=== PATIENT | female | born 1935 | race Caucasian/White ===

== ENCOUNTER 2019-06-24 11:17 | Emergency (ER) | payer MEDICARE, BC ==
--- NOTE | 2019-06-24 13:11 | CT ---
Head CT Technique: Multiple axial sections through the brain were obtained. Intravenous contrast was not utilized. Comparison: No previous intracranial imaging. Findings: Cystic structure is noted within the left temporal region which is most likely congenital. Ventricles along with basal cisterns and sulci over the convexities are moderately prominent. Minimal diminished density is noted within the periventricular white matter. No other abnormal parenchymal densities are seen. No evidence of intracranial hemorrhage. No midline shift or mass effect is seen. Bone window settings were reviewed which show the visualized paranasal sinuses and mastoid sinuses to appear clear. No acute calvarial abnormality is seen. Impression: 1. 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 2. Mild senescent change as noted above. Nothing acute is appreciated on noncontrast head CT exam. Diagnostic code #2
--- NOTE | 2019-06-24 13:50 | EDM.PDOC ---
ED HPI GENERAL MEDICAL PROBLEM - General Chief Complaint: Syncope Stated Complaint: CHILLS,FAINTED YESTERDAY,SORE Time Seen by Provider: 06/24/19 11:39 Source of Information: Reports: Patient, RN Notes Reviewed - History of Present Illness INITIAL COMMENTS - FREE TEXT/NARRATIVE: 84-year-old lady suffered brief syncope around 2 AM which would be about 9 hours prior to arrival. She states she felt slightly nauseated, went to use the bathroom, was sitting on the toilet and next thing she knew she was on the floor. When she awakened she states she "felt okay, went back to bed, slept comfortably the rest of the night. This morning since awakening she has had no further unusual symptoms. She does not have history of hypertension diabetes or known heart disease. Generalized Pain Score (Numeric/FACES): 4 - Related Data Allergies Allergy/AdvReac Type Severity Reaction Status Date / Time Penicillins Allergy Rash Verified 06/24/19 11:32 Home Meds: Home Meds Multivitamin [Multiple Vitamins] 1 tab PO DAILY 06/24/19 [History] Nitrofurantoin Monohyd/M-Cryst [Macrobid 100 mg Capsule] 100 mg PO Q12HR #10 capsule 06/24/19 [Rx] Past Medical History HEENT History: Reports: Impaired Vision Other HEENT History: wears glasses [employer] History: Reports: - Past Surgical History HEENT Surgical History: Reports: Cataract Surgery GI Surgical History: Reports: Colonoscopy Female Surgical History: Reports: Hysterectomy Musculoskeletal Surgical History: Reports: Knee Replacement, Shoulder Replacement Social & Family History - Tobacco Use Smoking Status *Q: Never Smoker Second Hand Smoke Exposure: No - Caffeine Use Caffeine Use: Reports: Coffee - Recreational Drug Use Recreational Drug Use: No ED ROS GENERAL - Review of Systems Review Of Systems: See Below Constitutional: Denies: Fever, Chills, Diaphoresis HEENT: Reports: No Symptoms Respiratory: Denies: Shortness of Breath, Pleuritic Chest Pain Cardiovascular: Denies: Chest Pain GI/Abdominal: Denies: Abdominal Pain, Nausea, Vomiting Musculoskeletal: Denies: Neck Pain, Shoulder Pain, Arm Pain, Back Pain, Leg Pain , Joint Pain Skin: Reports: No Symptoms Neurological: Denies: Numbness, Tingling, Trouble Speaking, Difficulty Walking, Weakness - Physical Exam Exam: See Below General Appearance: Alert, No Apparent Distress Eye Exam: Bilateral Eye: PERRL Ears: Normal External Exam Nose: Normal Inspection Throat/Mouth: Normal Inspection Head Exam: Atraumatic. No: Scalp Swelling, Facial Swelling, Facial Tenderness Neck: Supple, Non-Tender Respiratory/Chest: No Respiratory Distress, Lungs Clear, Normal Breath Sounds, Chest Non-Tender Cardiovascular: Regular Rate, Rhythm GI/Abdominal: Soft, Non-Tender. No: Guarding Neuro Exam (Abbreviated): Alert, Oriented, No Motor/Sensory Deficits Back Exam: No: Paraspinal Tenderness, Vertebral Tenderness Extremities: Normal Inspection, Normal Range of Motion, Other (nontender) Skin Exam: Warm, Dry, Normal Color EKG INTERPRETATION EKG Date: 06/24/19 Rhythm: NSR [place]: Normal P-Wave: Present QRS: Normal ST-T: Normal Course - Vital Signs Last Recorded V/S: Last Vital Signs Temp 99.4 F 06/24/19 11:27 Pulse 75 06/24/19 11:27 Resp 13 06/24/19 11:27 BP 119/61 06/24/19 11:27 Pulse Ox 98 06/24/19 11:27 - Orders/Labs/Meds Labs: Laboratory Tests 06/24/19 06/24/19 06/24/19 Range/Units 12:26 12:26 13:58 WBC 13.62 H (3.98-10.04) K/mm3 RBC 4.24 (3.98-5.22) M/mm3 Hgb 11.8 (11.2-15.7) gm/dl Hct 37.3 (34.1-44.9) % MCV 88.0 (79.4-94.8) fl MCH 27.8 (25.6-32.2) pg MCHC 31.6 L (32.2-35.5) g/dl RDW Std Deviation 46.4 H (36.4-46.3) fL Plt Count 185 (182-369) K/mm3 MPV 10.4 (9.4-12.3) fl Neut % (Auto) 83.3 H (34.0-71.1) % Lymph % (Auto) 14.5 L (19.3-51.7) % [place] % (Auto) 1.2 L (4.7-12.5) % Eos % (Auto) 0.4 L (0.7-5.8) Baso % (Auto) 0.4 (0.1-1.2) % Neut # (Auto) 11.33 H (1.56-6.13) K/mm3 Lymph # (Auto) 1.98 (1.18-3.74) K/mm3 [place] # (Auto) 0.17 L (0.24-0.36) K/mm3 Eos # (Auto) 0.06 (0.04-0.36) K/mm3 Baso # (Auto) 0.05 (0.01-0.08) K/mm3 Sodium 139 (136-145) mEq/L Potassium 3.8 (3.5-5.1) mEq/L Chloride 102 (98-107) mEq/L Carbon Dioxide 28 (21-32) mEq/L Anion Gap 12.8 (5-15) BUN 24 H (7-18) mg/dL Creatinine 1.2 H (0.55-1.02) mg/dL Est Cr Clr Drug Dosing 26.80 mL/min Estimated GFR (MDRD) 43 (>60) mL/min BUN/Creatinine Ratio 20.0 H (14-18) Glucose 88 (83-115) mg/dL Calcium 8.5 (8.5-10.1) mg/dL Total Bilirubin 0.5 (0.2-1.0) mg/dL AST 17 (15-37) U/L ALT 13 L (14-59) U/L Alkaline Phosphatase 69 (46-116) U/L Troponin I < 0.017 (0.00-0.056) ng/mL Total Protein 6.2 L (6.4-8.2) g/dl Albumin 2.9 L (3.4-5.0) g/dl Globulin 3.3 gm/dL Albumin/Globulin Ratio 0.9 L (1-2) Urine Color Yellow (Yellow) Urine Appearance Clear (Clear) Urine pH 5.5 (5.0-8.0) Ur Specific [place] 1.015 (1.005-1.030) Urine Protein Trace H (Negative) Urine Glucose (UA) Negative (Negative) Urine Ketones Negative (Negative) Urine Occult Blood 1+ H (Negative) Urine Nitrite Negative (Negative) Urine Bilirubin Negative (Negative) Urine Urobilinogen 0.2 (0.2-1.0) Ur Leukocyte Esterase Trace H (Negative) Urine RBC 0-5 (0-5) /hpf Urine WBC 5-10 H (0-5) /hpf Ur Epithelial Cells 0-5 (0-5) /hpf Ur Squamous Epith Cells 0-5 (0-5) /hpf Urine Bacteria Few (FEW) /hpf Urine Mucus Few (FEW) /hpf - Re-Assessments/Exams Free Text/Narrative Re-Assessment/Exam: 06/28/19 20:07 WBC very mildly elevated. Labs otherwise normal including trop and UA. She rested comfortably while in the ED, sinus rythm, no ectopy. Departure - Departure Time of Disposition: 15:53 Disposition: Home, Self-Care 01 Condition: Fair Clinical Impression: Syncope Qualifiers: Syncope type: unspecified Qualified Code(s): R55 - Syncope and collapse UTI (urinary tract infection) Qualifiers: Urinary tract infection type: site unspecified Hematuria presence: without hematuria Qualified Code(s): N39.0 - Urinary tract infection, site not specified - Discharge Information Prescriptions: Nitrofurantoin Monohyd/M-Cryst [Macrobid 100 mg Capsule] 100 mg PO Q12HR #10 capsule Instructions: Urinary Tract Infection, Adult, [id number], Syncope, Easy-to- Read Referrals: PCP,None [Primary Care Provider] - Forms: ED Department Discharge Additional Instructions: Drink plenty of water to maintain hydration, Macrobid antibiotic 100 mg twice daily for 5 days. Urine culture has been done. Try see Alia Vivas at our [facility] Saturday for recheck. Urine culture results should be available by that time. Call [phone] for appointment. 48 hour Holter monitor. Follow-up with Alia Jonas next week for results of 48 hour Holter monitor. Return to ED as needed if symptoms worsening in any way.
== END 2019-06-24 16:30 | disposition home or self-care (01) ==
LOC: JD.ED 11:17
DX: R55 Syncope and collapse (principal); N39.0 Urinary tract infection, site not specified; Z98.49 Cataract extraction status, unspecified eye; Z90.710 Acquired absence of both cervix and uterus; Z88.0 Allergy status to penicillin
CPT/HCPCS: 36415; 70450; 70450-26; 80053; 81001; 84484; 85025; 87086; 93005; 93010; 93225; 93226; 99283; 99284-25